=== PATIENT | female | born 1980 | race Caucasian/White ===

== ENCOUNTER 2017-10-20 17:53 | Emergency (ER) | payer MEDICAID ==
[~2017-10-20] VITALS: Ht 154.9 cm; Wt 86.6 kg
[2017-10-20 18:16] VITALS: Ht 154.9 cm; Wt 86.6 kg
[2017-10-20 23:05] VITALS: BP 150/80
== END 2017-10-20 23:05 | disposition home or self-care (01) ==
LOC: ED 17:53
DX: S39.012A Strain of muscle, fascia and tendon of lower back, initial encounter (principal); X58.XXXA Exposure to other specified factors, initial encounter; Y93.89 Activity, other specified; Y92.89 Other specified places as the place of occurrence of the external cause; Y99.8 Other external cause status
CPT/HCPCS: J1200; J1885; J2270